=== PATIENT | male | born 2000 | race Two or more races ===

== ENCOUNTER 2020-11-18 12:48 | Emergency (ER) | payer SELFPAY ==
[~2020-11-18] VITALS: Ht 182.9 cm; Wt 77.0 kg
[2020-11-18] MEDS ORDERED: TETANUS, DIPHTHERIA, PERTUSSIS VAC/PF 0.5ML (>7YR OLD) IM ONE (13:45)
[2020-11-18] MEDS ORDERED: ACETAMINOPHEN 325MG TABLET PO ONE (13:45)
[2020-11-18] MEDS ORDERED: LIDOCAINE HCL/EPINEPHRINE 1%-EPI 1:100,000 20 ML VIAL INFIL ONE (13:45)
[2020-11-18] MEDS ORDERED: BACITRACIN ZINC OINT UDPKT TOP ONE (13:45)
[2020-11-18 15:13] VITALS: BP 117/68
== END 2020-11-18 15:15 | disposition home or self-care (01) ==
LOC: ER 12:55
DX: S61.412A Laceration without foreign body of left hand, initial encounter (principal); Z90.49 Acquired absence of other specified parts of digestive tract; X58.XXXA Exposure to other specified factors, initial encounter; Y93.89 Activity, other specified; Y92.89 Other specified places as the place of occurrence of the external cause; Y99.8 Other external cause status
CPT/HCPCS: 12001; 99283; J3490; Z7610; 90715

== ENCOUNTER 2020-11-20 20:34 | Emergency (ER) | payer SELFPAY ==
[~2020-11-20] VITALS: Ht 182.9 cm; Wt 78.0 kg
[2020-11-20 20:50] VITALS: BP 114/66
[2020-11-20] MEDS ORDERED: TETANUS, DIPHTHERIA, PERTUSSIS VAC/PF 0.5ML (>7YR OLD) IM ONE (21:15)
== END 2020-11-20 22:18 | disposition home or self-care (01) ==
LOC: ER 20:34
DX: Z48.00 Encounter for change or removal of nonsurgical wound dressing (principal)
CPT/HCPCS: 90715; 99281